=== PATIENT | female | born 1990 ===

== ENCOUNTER 2017-02-09 00:15 | Observation (INO) | payer BC, OTHER ==
[2017-02-09 00:23] VITALS: BMI 27.3
[2017-02-09] MEDS ORDERED: Sodium Chloride 0.9% 1,000 ML IV STA (00:28)
[2017-02-09] MEDS ORDERED: DiphenhydrAMINE 50 mg/ml Inj IVP STA (00:31)
--- NOTE | 2017-02-09 00:31 | ED PDOC ---
"Arrival/HPI - General Chief Complaint: GI Problem Time Seen by Provider: 02/09/17 00:21 Historian: Patient - History of Present Illness Narrative History of Present Illness (Text): 02/09/17 00:28 26 y/o female, pmh including chronic gastritis/gastric ulcer, nkda, c/o abdominal pain with nausea and vomiting x 3 days. Pt. stated that she has epigastric burning sensation for the past 3 days, out the pepcid for the past 5- 6 days, more sever tonight after spicy food meal, no chest pain or shortness of breath, no blood vomiting, no night sweat, no dark color stool, no chest pain or shortness of breath, no night sweat, no other medical or psychological complaints. Past Medical History - Provider Review Nursing Documentation Reviewed: Yes - Psychiatric Hx Substance Use: No Family/Social History - Physician Review Nursing Documentation Reviewed: Yes Family/Social History: Unknown Family HX Smoking Status: no Hx Alcohol Use: No Hx Substance Use: No Allergies/Home Meds Allergies/Adverse Reactions: Allergies No Known Allergies Allergy (Verified 02/09/17 00:25) Review of Systems - Review of Systems Constitutional: absent: Fatigue, Fevers Eyes: absent: Vision Changes ENT: absent: Hearing Changes Respiratory: absent: SOB, Cough Cardiovascular: absent: Chest Pain Gastrointestinal: Abdominal Pain, Nausea, Vomiting. absent: Diarrhea Skin: absent: Rash, Pruritis, Skin Lesions Physical Exam Vital Signs Reviewed: Yes Vital Signs Temp Pulse Resp BP Pulse Ox 02/09/17 04:09 99 F 82 18 131/79 02/09/17 03:45 65 16 120/64 100 02/09/17 00:27 99.0 F 83 18 125/67 99 Temperature: Afebrile Blood Pressure: Normal Pulse: Regular Respiratory Rate: Normal Appearance: Positive for: Well-Appearing, Non-Toxic Pain Distress: Moderate Mental Status: Positive for: Alert and Oriented X 3 - Systems Exam Head: Present: Atraumatic, Normocephalic Pupils: Present: PERRL Extroacular Muscles: Present: EOMI Conjunctiva: Present: Normal Mouth: Present: Moist Mucous Membranes Neck: Present: Normal Range of Motion Respiratory/Chest: Present: Clear to Auscultation, Good Air Exchange. No: Respiratory Distress, Accessory Muscle Use Cardiovascular: Present: Regular Rate and Rhythm, Normal S1, S2. No: Murmurs Abdomen: Present: Tenderness (+epigastric tenderness, negative kinney signs. ), Normal Bowel Sounds. No: Distention, Peritoneal Signs, Rebound, Guarding Back: Present: Normal Inspection. No: CVA Tenderness Upper Extremity: Present: Normal Inspection. No: Cyanosis, Edema Lower Extremity: Present: Normal Inspection. No: Edema Neurological: Present: GCS=15, CN II-XII Intact, Speech Normal Skin: Present: Warm, Dry, Normal Color. No: Rashes Psychiatric: Present: Alert, Oriented x 3, Normal Insight, Normal Concentration Medical Decision Making ED Course and Treatment: 02/09/17 00:34 -labs/ua/lipase/alcohol -IVF/benadryl/pepcid/reglan -Observe and reassess 02/09/17 00:53 -Labs are non-significant except mild elevation of the wbc 11.6, Potassium 3.1 -Potassium chloride 20mg po ordered. -Pt. has limited relief with the IV pepcid/reglan/benadryl. Morphine 4mg IV ordered -CT abdomen and pelvis added. Gallbladder sonogram added. 02/09/17 02:45 -Labs are non-significant except +UTI, K+ 3.1, Wbc 11.6. Potassium chloride 20meq po and IV rocephine ordered. -Sonogram show: no acute cholecystitis -CT Abdomen and pelvis results reviewed. -I checked the [facility] report, there is no visible record noted for the past 12 months with the names/dates of provided by the patient. I spoke to the registration which the registration Queta stated that the patient didn't have any ID cards or proof of the identity with her. -Carafate po suspension ordered. -There is no clear evidence of the source of the pain, will observe the patient overnight for the level of the pain 02/09/17 02:50 -I spoke to the biomedical analytical scientist Dr. Paredes and Dr. Lockett about the case/labs/ radiology studies, agreed to keep the patient for over night observation. - Lab Interpretations Microbiology Results: Microbiology Results 02/09/17 00:57 Urine,Clean Catch Urine Culture - Preliminary Gram Negative Gonzales Lab Results: 02/09/17 00:20 02/09/17 00:20 Lab Results 02/09/17 01:00: Urine Color Yellow, Urine Appearance Cloudy, Urine pH 6.0, Ur Specific [place] >= 1.030, Urine Protein 30 H, Urine Glucose (UA) Negative, Urine Ketones >=80, Urine Blood Small H, Urine Nitrate Negative, Urine Bilirubin Negative, Urine Urobilinogen 0.2, Ur Leukocyte Esterase Large H, Urine RBC 2 - 5, Urine WBC 25 - 30, Ur Epithelial Cells 3 - 4, Urine Bacteria Mod 02/09/17 00:20: WBC 11.6 H, RBC 4.25, Hgb 13.0, Hct 37.4, MCV 88.0, MCH 30.6, MCHC 34.8, RDW 13.5, Plt Count 194, MPV 9.5, Gran % 76.0 H, Lymph % (Auto) 17.2 L, Saunders % (Auto) 6.6 H, Eos % (Auto) 0.0 L, Baso % (Auto) 0.2, Gran # 8.82 H, Lymph # 2.0, Saunders # 0.8 H, Eos # 0.0, Baso # 0.02 02/09/17 00:20: Alcohol, Quantitative < 10 02/09/17 00:20: Sodium 143, Potassium 3.1 L, Chloride 101, Carbon Dioxide 26, Anion Gap 19, BUN 7, Creatinine 0.7, Est GFR ( Amer) > 60, Est GFR (Non- Af Amer) > 60, Random Glucose 95, Calcium 9.4, Total Bilirubin 0.7, AST 50 H, ALT 39, Alkaline Phosphatase 71, Total Protein 8.4 H, Albumin 5.0 H, Globulin 3.4, Albumin/Globulin Ratio 1.5, Lipase 46 I have reviewed the lab results: Yes Interpretation: Abnormal lab values (+UTI, K+ 3.1, Wbc 11.6) - RAD Interpretation Radiology Orders: 02/09/17 00:50 ABD & PELVIS IV CONTRAST ONLY [CT] Stat 02/09/17 00:52 GALL BLADDER [US] Stat FINDINGS: Liver: Normal echogenicity. No mass. No intrahepatic bile duct dilatation. Gallbladder: No gallstones. Sludge. No wall thickening. No pericholecystic fluid. Common bile duct: No dilatation. No stones. Pancreas: Unremarkable as visualized. Right kidney: Normal echogenicity. No hydronephrosis. IMPRESSION: 1. Gallbladder sludge. Thank you for allowing us to participate in the care of your patient. Dictated and Authenticated by: Marlo Andrade MD 02/09/2017 2:33 AM Eastern Time ( & Sara) FINDINGS: Lower thorax: No acute findings. ABDOMEN: Liver: Minimal periportal edema. Gallbladder and bile ducts: No calcified stones. No ductal dilation. Pancreas: No ductal dilation. No mass. Spleen: No splenomegaly. Adrenals: No mass. Kidneys and ureters: No mass. No hydronephrosis. Stomach and bowel: Segmental areas of mild mural thickening vs underdistention of large bowel. No associated inflammatory stranding. No obstruction. Appendix: Normal caliber. No inflammation. PELVIS: GRABIEL BOB | Final Radiology Report CONFIDENTIALITY STATEMENT This report is intended only for use by the referring physician, and only in accordance with law. If you received this in error, call [phone]. Page 2 of 2 Bladder: Unremarkable. Reproductive: Small ovarian follicles. ABDOMEN and PELVIS: Intraperitoneal space: Small free fluid within pelvis. No free air. Bones/joints: No acute fracture. Soft tissues: Tiny umbilical hernia containing fat. Vasculature: Few rounded calcifications within pelvis, likely phleboliths. No aneurysm. Lymph nodes: No pathologically enlarged lymph nodes. IMPRESSION: 1. Periportal edema, nonspecific. 2. Small pelvic ascites, nonspecific. 3. Mild colitis vs underdistention. Favor underdistention. Clinical correlation is needed. 4. Incidental/non-acute findings are described above. Thank you for allowing us to participate in the care of your patient. Dictated and Authenticated by: Marlo Andrade MD 02/09/2017 2:32 AM Eastern Time ( & Sara) Franchise Sales Representative: Radiologist - Medication Orders Current Medication Orders: Acetaminophen (Tylenol 325mg Tab) 650 mg PO Q6 PRN PRN Reason: Pain, Mild (1-3) Last Admin: 02/10/17 09:48 Dose: 650 mg Re-Assess: MAR Pain/Vitals Document 02/10/17 10:48 ID (Rec: 02/10/17 12:00 ID [id number]) Pain Reassessment Is This A Pain ReAssessment? No Sleep Is patient sleeping during reassessment? No Presence of Pain Presence of Pain Yes Pain Scale Used Pain Scale Used Numeric Location Pain Location Body Site Abdomen Description Intermittent Chronic Scale Used Numeric Pain Behavior Rubbing Site Aggravating Factors Exercise/Activity Alleviating Factors Medication Acetaminophen (Tylenol 325mg Tab) 650 mg PO Q6 PRN PRN Reason: Fever >100.4 F Al Hydrox/Mg Hydrox/Simethicone (Maalox Plus 30 Ml) 30 ml PO Q6 PRN PRN Reason: Indigestion / Heartburn Last Admin: 02/10/17 09:47 Dose: 30 ml Docusate Sodium (Colace) 100 mg PO DAILY [facility] Last Admin: 02/10/17 09:55 Dose: 100 mg Ceftriaxone Sodium (Rocephin 1 Gram Ivpb) 1 gm in 100 mls @ 100 mls/hr IVPB DAILY [facility] PRN Reason: Protocol Last Admin: 02/10/17 09:50 Dose: 100 mls/hr Potassium Chloride 40 meq/ (Sodium Chloride) 1,020 mls @ 100 mls/hr IV .[id number] [facility] Last Admin: 02/10/17 12:08 Dose: 100 mls/hr Lorazepam (Ativan) 0.5 mg PO TID PRN; Protocol PRN Reason: Nausea/Vomiting Ondansetron HCl (Zofran Inj) 4 mg IVP Q4H PRN PRN Reason: Nausea/Vomiting Last Admin: 02/10/17 08:42 Dose: 4 mg Pantoprazole Sodium (Protonix Inj) 40 mg IVP BID [facility] Last Admin: 02/10/17 09:48 Dose: 40 mg Polyethylene Glycol (Miralax) 17 gm PO DAILY [facility] Last Admin: 02/10/17 09:51 Dose: 17 gm Sucralfate (Carafate Oral Susp) 1 gm PO 0600,1600 [facility] Last Admin: 02/10/17 11:58 Dose: 1 gm Discontinued Medications Al Hydrox/Mg Hydrox/Simethicone (Maalox Plus 30 Ml) 15 ml PO Q8 [facility] Last Admin: 02/09/17 21:22 Dose: 15 ml Diphenhydramine HCl (Benadryl) 25 mg IVP STAT STA Stop: 02/09/17 00:32 Last Admin: 02/09/17 00:42 Dose: 25 mg Famotidine (Pepcid) 20 mg IVP STAT STA Stop: 02/09/17 00:29 Last Admin: 02/09/17 00:40 Dose: 20 mg Heparin Sodium (Porcine) (Heparin) 5,000 units SC Q12 [facility] PRN Reason: Protocol Last Admin: 02/09/17 21:38 Dose: 5,000 units Hydromorphone HCl (Dilaudid) 0.5 mg IVP STAT STA Stop: 02/09/17 15:30 Last Admin: 02/09/17 15:48 Dose: 0.5 mg Re-Assess: [facility] Pain Assessment Document 02/09/17 16:48 GM (Rec: 02/09/17 18:48 GM [id number]) Pain Reassessment Is this a pain reassessment? Yes Sleep Is patient sleeping during reassessment? Yes Hydromorphone HCl (Dilaudid) 0.2 mg IVP STAT STA Stop: 02/10/17 00:35 Last Admin: 02/10/17 01:09 Dose: 0.2 mg Re-Assess: [facility] Pain Assessment Document 02/10/17 02:09 KTB (Rec: 02/10/17 02:31 KTB [id number]) Pain Reassessment Is this a pain reassessment? Yes Sleep Is patient sleeping during reassessment? Yes Hydromorphone HCl (Dilaudid) 0.5 mg IVP STAT STA Stop: 02/10/17 04:13 Last Admin: 02/10/17 04:28 Dose: 0.5 mg Re-Assess: [facility] Pain Assessment Document 02/10/17 05:28 KTB (Rec: 02/10/17 05:50 KTB [id number]) Pain Reassessment Is this a pain reassessment? Yes Sleep Is patient sleeping during reassessment? Yes Sodium Chloride (Sodium Chloride 0.9%) 1,000 mls @ 999 mls/hr IV .Q1H1M STA Stop: 02/09/17 01:28 Last Admin: 02/09/17 00:40 Dose: 999 mls/hr Ceftriaxone Sodium (Rocephin 1 Gram Ivpb) 1 gm in 100 mls @ 200 mls/hr IVPB STAT STA PRN Reason: Protocol Stop: 02/09/17 01:58 Last Admin: 02/09/17 02:42 Dose: 200 mls/hr Potassium Chloride (Potassium Chloride 10 Meq/100 Ml) 10 meq in 100 mls @ 100 mls/hr IVPB Q2H [facility]ISA Stop: 02/09/17 08:59 Last Admin: 02/09/17 15:51 Dose: 100 mls/hr Sodium Chloride (Sodium Chloride 0.9%) 1,000 mls @ 100 mls/hr IV .Q10H [facility] Last Admin: 02/09/17 05:27 Dose: 100 mls/hr Metronidazole (Flagyl) 500 mg in 100 mls @ 100 mls/hr IVPB Q8 [facility] PRN Reason: Protocol Last Admin: 02/10/17 05:53 Dose: 100 mls/hr Iohexol (Omnipaque 350 100 Ml) Confirm Administered Dose 350 mg .ROUTE .STK-MED ONE Stop: 02/09/17 01:11 Lorazepam (Ativan) 0.5 mg PO TID [facility] PRN Reason: Protocol Last Admin: 02/10/17 09:44 Dose: 0.5 mg Re-Assess: Reassess Psych Meds Document 02/10/17 10:44 ID (Rec: 02/10/17 11:58 ID [id number]) Reassess Psych Med Effective Metoclopramide HCl (Reglan) 10 mg IVP STAT STA Stop: 02/09/17 00:29 Last Admin: 02/09/17 00:42 Dose: 10 mg Morphine Sulfate (Morphine) 4 mg IVP STAT STA Stop: 02/09/17 00:51 Last Admin: 02/09/17 01:01 Dose: 4 mg Morphine Sulfate (Morphine) 2 mg IVP Q4H PRN PRN Reason: Pain, severe (8-10) Last Admin: 02/09/17 21:23 Dose: 2 mg Re-Assess: MAR Pain Assessment Document 02/09/17 22:23 KTB (Rec: 02/10/17 05:49 KTB [id number]) Pain Reassessment Is this a pain reassessment? Yes Presence of Pain Presence of Pain Yes Pain Scale Used Pain Scale Used Numeric Description Intensity of Pain at present 6 Ondansetron HCl (Zofran Inj) 4 mg IVP STAT STA Stop: 02/09/17 03:03 Last Admin: 02/09/17 03:16 Dose: 4 mg Pantoprazole Sodium (Protonix Inj) 40 mg IVP DAILY [facility] Last Admin: 02/09/17 09:21 Dose: 40 mg Potassium Chloride (K-Dur 20 Meq Er Tab) 20 meq PO STAT STA Stop: 02/09/17 01:30 Last Admin: 02/09/17 02:45 Dose: Not Given Non-Admin Reason: Patient Refused Potassium Chloride (K-Dur 20 Meq Er Tab) 40 meq PO ONCE ONE Stop: 02/10/17 07:56 Last Admin: 02/10/17 10:00 Dose: 40 meq Sucralfate (Carafate Oral Susp) 1 gm PO STAT STA Stop: 02/09/17 02:45 Last Admin: 02/09/17 03:16 Dose: 1 gm - PA / DRAW OPERATOR / Resident Statement /DO has reviewed & agrees with the documentation as recorded. Disposition/Present on Arrival - Present on Arrival Any Indicators Present on Arrival: No History of DVT/PE: No History of Uncontrolled Diabetes: No Urinary Catheter: No History of Decub. Ulcer: No History Surgical Site Infection Following: None - Disposition Have Diagnosis and Disposition been Completed?: Yes Diagnosis: UTI (urinary tract infection), Gastritis, Nausea & vomiting, Hypokalemia, Intractable abdominal pain Disposition: HOSPITALIZED Disposition Time: 01:32 Patient Plan: Observation Patient Problems: Current Active Problems Problem Status Onset Gastritis Acute Hypokalemia Acute Intractable abdominal pain Acute Nausea & vomiting Acute UTI (urinary tract infection) Acute Condition: STABLE"
[2017-02-09 00:48] LABS: BASO # 0.02 K/mm3 (0.0-2.0); BASO % 0.2 % (0.0-3.0); GRAN # 8.82 (1.4-6.5); HEMATOCRIT 37.4 % (36.0-48.0); LYMPH % 17.2 % (22.0-35.0); MEAN CORPUSCULAR HEMOGLOBIN 30.6 pg (25.0-35.0); MEAN CORPUSCULAR HGB CONC 34.8 g/dl (31.0-37.0); MEAN PLATELET VOLUME 9.5 fl (7.0-11.0); MONO # 0.8 (0.1-0.6); MONO % 6.6 % (1.0-6.0); RED CELL DISTRIBUTION WIDTH 13.5 % (11.5-14.5); WHITE BLOOD COUNT 11.6 10^3/ul (4.5-11.0)
[2017-02-09 00:50] LABS: ALB/GLOB RATIO 1.5 (1.1-1.8); ALKALINE PHOSPHATASE 71 U/L (38-126); ALT/SGPT 39 U/L (7-56); AST/SGOT 50 U/L (14-36); BILIRUBIN,TOTAL 0.7 mg/dL (0.2-1.3); BLOOD UREA NITROGEN 7 mg/dL (7-21); CALCIUM 9.4 mg/dL (8.4-10.5); CARBON DIOXIDE 26 mmol/L (21-33); CHLORIDE 101 mmol/L (98-107); GFR AFRICAN-AMERICAN > 60; GLUCOSE,RANDOM 95 mg/dL (70-110); LIPASE 46 U/L (23-300); POTASSIUM 3.1 mmol/L (3.6-5.0); SODIUM 143 mmol/L (132-148); TOTAL PROTEIN 8.4 g/dL (5.8-8.3)
[2017-02-09] MEDS ORDERED: Morphine 4 mg/ml ISec IVP STA (00:50)
[2017-02-09] MEDS ORDERED: Iohexol 350 MG/100 ML VIAL ONE (01:10)
[2017-02-09 01:11] LABS: URINE BILIRUBIN NEGATIVE (NEGATIVE); URINE BLOOD SMALL (NEGATIVE); URINE GLUCOSE (UA) NEGATIVE (NEGATIVE); URINE KETONE >=80 mg/dL (NEGATIVE); URINE LEUKOCYTE ESTERASE LARGE Leu/uL (NEGATIVE); URINE PROTEIN 30 mg/dL (<30 mg/dL); URINE UROBILINOGEN 0.2 E.U./dL (<1 E.U./dL)
[2017-02-09 01:14] LABS: URINE APPEARANCE CLOUDY (CLEAR); URINE COLOR YELLOW (YELLOW)
[2017-02-09 01:17] LABS: URINE WBC 25 - 30 /hpf (0-6)
[2017-02-09 01:18] LABS: URINE BACTERIA MOD (NEG)
[2017-02-09] MEDS ORDERED: cefTRIAXone 1 gm 1 GM/100 ML BAG IVPB STA (01:29)
--- NOTE | 2017-02-09 02:32 | CT ---
EXAM: CT Abdomen and Pelvis With Intravenous Contrast CLINICAL HISTORY: 26 years old, female; Pain; Abdominal pain; Additional info: Upper abdominal pain and vomiting x 5 days TECHNIQUE: Axial computed tomography images of the abdomen and pelvis with intravenous contrast. All CT scans at this facility use one or more dose reduction techniques, viz.: automated exposure control; ma/kV adjustment per patient size (including targeted exams where dose is matched to indication; i.e. head); or iterative reconstruction technique. Coronal and sagittal reformatted images were created and reviewed. CONTRAST: 100 mL of OMNIPAQUE administered intravenously. COMPARISON: No relevant prior studies available. FINDINGS: Lower thorax: No acute findings. ABDOMEN: Liver: Minimal periportal edema. Gallbladder and bile ducts: No calcified stones. No ductal dilation. Pancreas: No ductal dilation. No mass. Spleen: No splenomegaly. Adrenals: No mass. Kidneys and ureters: No mass. No hydronephrosis. Stomach and bowel: Segmental areas of mild mural thickening vs underdistention of large bowel. No associated inflammatory stranding. No obstruction. Appendix: Normal caliber. No inflammation. PELVIS: Bladder: Unremarkable. Reproductive: Small ovarian follicles. ABDOMEN and PELVIS: Intraperitoneal space: Small free fluid within pelvis. No free air. Bones/joints: No acute fracture. Soft tissues: Tiny umbilical hernia containing fat. Vasculature: Few rounded calcifications within pelvis, likely phleboliths. No aneurysm. Lymph nodes: No pathologically enlarged lymph nodes. IMPRESSION: 1. Periportal edema, nonspecific. 2. Small pelvic ascites, nonspecific. 3. Mild colitis vs underdistention. Favor underdistention. Clinical correlation is needed. 4. Incidental/non-acute findings are described above.
--- NOTE | 2017-02-09 02:34 | US ---
EXAM: US Abdomen Limited, Right Upper Quadrant CLINICAL HISTORY: 26 years old, female; Pain; Abdominal pain; Epigastric; Additional info: Epigastric abdomina pain TECHNIQUE: Real-time ultrasound of the right upper quadrant with image documentation. COMPARISON: No relevant prior studies available. FINDINGS: Liver: Normal echogenicity. No mass. No intrahepatic bile duct dilatation. Gallbladder: No gallstones. Sludge. No wall thickening. No pericholecystic fluid. Common bile duct: No dilatation. No stones. Pancreas: Unremarkable as visualized. Right kidney: Normal echogenicity. No hydronephrosis. IMPRESSION: 1. Gallbladder sludge.
[2017-02-09] MEDS: Potassium Chloride 20 mEq ER Tab PO STA ×2 (02:42→02:45)
[2017-02-09] MEDS ORDERED: Sucralfate 1 gm/10 ml Oral Susp UD PO STA (02:44)
[2017-02-09] MEDS ORDERED: Sodium Chloride 0.9% 1,000 ML IV SCH (04:00)
--- NOTE | 2017-02-09 04:22 | CP.PCM.HP ---
<Jorge Land - Last Filed: 02/09/17 04:13> History of Present Illness - History of Present Illness History of Present Illness: CC: Intractable N/V/Abdominal pain HPI: 26 F with a PMHx of chronic gastritis and gastric ulcer presenting to the [facility] ED with complaints of intractable abdominal pain, nausea and vomitting. Pt states that the symptoms began this past after eating spicy home cooked meal on saturday. Pt states that spicy food is a trigger for her gastritis symptoms to flare up. Pt has had similar symptoms in the past, and most recently hospitalized at [facility] a couple of months ago. Pt was to follow up GI as an outpatient, however did not do so. Pt states that her abdominal pain is rated at a 8/10 in intensity, diffuse and burning in quality. Pt has had nbnv emesis over the past three day, and has had 2-3 episodes today. Pt denied fever, chills, sob, chest pains, hematochezia, melena, or dysuria. Pt noted that she has not had a bowel movement in the past 3 days. PMHx; as above PSHx: Denied FamilyHx: Denied SHx: Denied tobacco/etoh/illicits Allergies: NKDA Meds: otc pepcid No PMD Present on Admission - Present on Admission Any Indicators Present on Admission: No Review of Systems - Review of Systems Review of Systems: as per HPI otherwise negative Past Patient History - Past Social History Smoking Status: no - PSYCHIATRIC Hx Substance Use: No Meds Allergies/Adverse Reactions: Allergies Allergy/AdvReac Type Severity Reaction Status Date / Time No Known Allergies Allergy Verified 02/09/17 00:25 Physical Exam - Constitutional Appears: In Acute Distress - Head Exam Head Exam: ATRAUMATIC, NORMAL INSPECTION, NORMOCEPHALIC - Eye Exam Eye Exam: EOMI, Normal appearance, PERRL Pupil Exam: NORMAL ACCOMODATION, PERRL - ENT Exam ENT Exam: Mucous Membranes Moist, Normal Exam - Neck Exam Neck exam: Positive for: Normal Inspection - Respiratory Exam Respiratory Exam: Clear to Auscultation Bilateral, NORMAL BREATHING PATTERN - Cardiovascular Exam Cardiovascular Exam: REGULAR RHYTHM, +S1, +S2 - GI/Abdominal Exam GI & Abdominal Exam: Normal Bowel Sounds, Soft, Tenderness. absent: Rebound Additional comments: diffuse - Extremities Exam Extremities exam: Positive for: normal inspection - Neurological Exam Neurological exam: Alert, CN II-XII Intact, Normal Gait, Oriented x3, Reflexes Normal - Psychiatric Exam Psychiatric exam: Normal Affect, Normal Mood - Skin Skin Exam: Dry, Intact, Normal Color, Warm Results - Vital Signs Recent Vital Signs: Last Vital Signs Temp 99.0 F 02/09/17 00:27 Pulse 65 02/09/17 03:45 Resp 16 02/09/17 03:45 BP 120/64 02/09/17 03:45 Pulse Ox 100 02/09/17 03:45 - Labs Result Diagrams: 02/09/17 00:20 02/09/17 00:20 Labs: Laboratory Results - last 24 hr 02/09/17 02/09/17 02/09/17 00:20 00:20 00:20 WBC 11.6 H RBC 4.25 Hgb 13.0 Hct 37.4 MCV 88.0 MCH 30.6 MCHC 34.8 RDW 13.5 Plt Count 194 MPV 9.5 Gran % 76.0 H Lymph % (Auto) 17.2 L Parke % (Auto) 6.6 H Eos % (Auto) 0.0 L Baso % (Auto) 0.2 Gran # 8.82 H Lymph # 2.0 Parke # 0.8 H Eos # 0.0 Baso # 0.02 Sodium 143 Potassium 3.1 L Chloride 101 Carbon Dioxide 26 Anion Gap 19 BUN 7 Creatinine 0.7 Est GFR ( Amer) > 60 Est GFR (Non-Af Amer) > 60 Random Glucose 95 Calcium 9.4 Total Bilirubin 0.7 AST 50 H ALT 39 Alkaline Phosphatase 71 Total Protein 8.4 H Albumin 5.0 H Globulin 3.4 Albumin/Globulin Ratio 1.5 Lipase 46 Urine Color Urine Appearance Urine pH Ur Specific [place] Urine Protein Urine Glucose (UA) Urine Ketones Urine Blood Urine Nitrate Urine Bilirubin Urine Urobilinogen Ur Leukocyte Esterase Urine RBC Urine WBC Ur Epithelial Cells Urine Bacteria Alcohol, Quantitative < 10 02/09/17 01:00 WBC RBC Hgb Hct MCV MCH MCHC RDW Plt Count MPV Gran % Lymph % (Auto) Parke % (Auto) Eos % (Auto) Baso % (Auto) Gran # Lymph # Parke # Eos # Baso # Sodium Potassium Chloride Carbon Dioxide Anion Gap BUN Creatinine Est GFR ( Amer) Est GFR (Non-Af Amer) Random Glucose Calcium Total Bilirubin AST ALT Alkaline Phosphatase Total Protein Albumin Globulin Albumin/Globulin Ratio Lipase Urine Color Yellow Urine Appearance Cloudy Urine pH 6.0 Ur Specific [place] >= 1.030 Urine Protein 30 H Urine Glucose (UA) Negative Urine Ketones >=80 Urine Blood Small H Urine Nitrate Negative Urine Bilirubin Negative Urine Urobilinogen 0.2 Ur Leukocyte Esterase Large H Urine RBC 2 - 5 Urine WBC 25 - 30 Ur Epithelial Cells 3 - 4 Urine Bacteria Mod Alcohol, Quantitative Assessment & Plan - Assessment and Plan (Free Text) Assessment: 26 F with PMHx of chronic gastritis and gastric ulcer admitted for observation for intractable abdominal pain/ nausea and vomitting Intractable N/V/Abdominal pain Hx of Chronic gastritis with gastric ulcer NPO, protonix, judicious analgesia, IVF NS@100, zofran Rocephin, flagyl, sucralafate GI Consulted, Dr. Berry Leukocytosis 2/2 above vs UTI Rocephin, flagyl IVF Continue to monitor Hypokalemia IV KCl continue to monitor Constipation IV reglan in ED defer to GI GI DVT ppx reviewed <Luz Lockett - Last Filed: 02/09/17 05:47> Results - Vital Signs Recent Vital Signs: Last Vital Signs Temp 99 F 02/09/17 04:09 Pulse 82 02/09/17 04:09 Resp 18 02/09/17 04:09 BP 131/79 02/09/17 04:09 Pulse Ox 100 02/09/17 03:45 - Labs Result Diagrams: 02/09/17 00:20 02/09/17 00:20 Attending/Attestation - Attestation I have personally seen and examined this patient.: Yes I have fully participated in the care of the patient.: Yes I have reviewed all pertinent clinical information: Yes Notes (Text): 02/09/17 05:33 Patient was seen when she was in room # 378. Agree with history, physical examination, assessment and plan. This 26 year old woman comes in with complaint of epigastric pain, sharp, pins and needle, no radiation of pain, nausea, vomiting more than 10 times, little vomitus each time , sometimes with blood steak , has no known allergies, no significant past medical history, no surgical history, family history of heart disease, maternal aunt with pancreatic cancer, quit smoking one year ago, smoked 1-2 cig/day, has PMD at [employer] in [place], lives in a house in [facility],with mother and brother, had LMP last Saturday, has 3 children, no history of abortions or miscarriages, review of system shows hand arthritis, hands stiffen up sometimes, GERD, stomach ulcer, seizure disorder, last seizure was one year ago, was on dilantin? 4-5 months ago.
[2017-02-09] MEDS: Morphine 2 mg/ml ISec IVP PRN ×4 (04:49→21:23)
[2017-02-09 07:33] LABS: ALB/GLOB RATIO 1.5 (1.1-1.8); ALKALINE PHOSPHATASE 61 U/L (38-126); ALT/SGPT 39 U/L (7-56); AST/SGOT 46 U/L (14-36); BILIRUBIN,TOTAL 0.6 mg/dL (0.2-1.3); BLOOD UREA NITROGEN 4 mg/dL (7-21); CALCIUM 8.6 mg/dL (8.4-10.5); CARBON DIOXIDE 26 mmol/L (21-33); CHLORIDE 102 mmol/L (98-107); GFR AFRICAN-AMERICAN > 60; GLUCOSE,RANDOM 83 mg/dL (70-110); PHOSPHOROUS 2.7 mg/dL (2.5-4.5); POTASSIUM 3.3 mmol/L (3.6-5.0); SODIUM 139 mmol/L (132-148); TOTAL PROTEIN 7.5 g/dL (5.8-8.3)
[2017-02-09 07:35] LABS: BASO # 0.02 K/mm3 (0.0-2.0); BASO % 0.2 % (0.0-3.0); GRAN # 6.89 (1.4-6.5); GRAN % 65.9 % (50.0-68.0); HEMATOCRIT 35.6 % (36.0-48.0); LYMPH # 2.8 (1.2-3.4); LYMPH % 26.3 % (22.0-35.0); MEAN CELL VOLUME 87.5 fl (80.0-105.0); MEAN CORPUSCULAR HEMOGLOBIN 30.2 pg (25.0-35.0); MEAN CORPUSCULAR HGB CONC 34.6 g/dl (31.0-37.0); MONO # 0.8 (0.1-0.6); MONO % 7.6 % (1.0-6.0); RED CELL DISTRIBUTION WIDTH 13.4 % (11.5-14.5); WHITE BLOOD COUNT 10.5 10^3/ul (4.5-11.0)
[2017-02-09] MEDS: Sucralfate 1 gm/10 ml Oral Susp UD PO SCH ×2 (07:51→15:43)
[2017-02-09] MEDS: metroNIDAZOLE IV 500 mg/100 ml 500 MG/100 ML BAG IVPB SCH ×3 (07:51→21:21)
[2017-02-09] MEDS: cefTRIAXone 1 gm 1 GM/100 ML BAG IVPB SCH (09:24)
[2017-02-09] MEDS ORDERED: HYDROmorphone 0.5 mg/0.5 ml ISec IVP STA (15:29)
--- NOTE | 2017-02-09 15:39 | CP.PCM.CON ---
History of Present Illness - History of Present Illness History of Present Illness: Surgery 26 F with PMH of gastric ulcer/gastritis who is a former smoker came with epigastric pain, N/V that started a few days ago. Pt reports that pain started when she ate spicy food. Admits to multiple episodes of vomittimg. Non bilious. Mild blood tinged. Denies F/D/CP/SOB/hematochezia/dysuria/hematemesis. Pt had similar pain in the past. Dx w gastric ulcer 2,3 years ago. Last EGD was done at [facility] 2,3 years ago. Stopped smoking and drinking EtOh since then. They made symptoms worse. Pt doesn't take PPI. US shows Gall Bladder sludge. Surery is consulted to evaluate for cholelithiasis Review of Systems - Review of Systems Review of Systems: see HPI Past Patient History - Past Social History Smoking Status: no - CARDIAC Hx Cardiac Disorders: No Hx Angina: No Hx Cardia Arrhythmia: No Hx Circulatory Problems: No Hx Congestive Heart Failure: No Hx Heart Murmur: No Hx Heart Transplant: No Hx Hypercholesterolemia: No Hx Hypertension: Yes Hx Internal Defibrillator: No Hx Mitral Valve Prolapse: No Hx Pacemaker: No Hx Peripheral Edema: No Hx Peripheral Vascular Disease: No - PULMONARY Hx Respiratory Disorders: No Hx Asthma: No Hx Bronchitis: No Hx Chronic Obstructive Pulmonary Disease (COPD): No Hx Emphysema: No Hx Pneumonia: No Hx Respiratory Aspiration: No Hx Respiratory Tract Infection: No Hx Sleep Apnea: Yes Hx Tuberculosis: No - NEUROLOGICAL Hx Neurological Disorder: No Hx Alzheimer's Disease: No HX Cerebrovascular Accident: No Hx Dementia: No Hx Dizziness: No Hx Meningitis: No Hx Migraine: Yes Hx Parkinson's Disease: No Hx Seizures: No Hx Transient Ischemic Attacks (TIA): No - HEENT Hx HEENT Problems: No Hx Blind: No Hx Cataracts: No Hx Deafness: No Hx Difficulty Chewing: No Hx Epistaxis: No Hx Glaucoma: No Hx Macular Degeneration: No - RENAL Hx Chronic Kidney Disease: No Hx Dialysis: No Hx Kidney Stones: No Hx Neurogenic Bladder: No Hx Pyelonephritis: No Hx Renal (Kidney) Cancer: No Hx Renal Failure: No - ENDOCRINE/METABOLIC Hx Endocrine Disorders: No Hx Adrenal Cancer: No Hx Diabetes Insipidus: No Hx Diabetes Mellitus Type 1: No Hx Diabetes Mellitus Type 2: No Hx Hyperthyroidism: No Hx Hypothyroidism: No Hx Systemic Lupus Erythematosus: No - HEMATOLOGICAL/ONCOLOGICAL Hx Blood Disorders: No Hx AIDS: No Hx Anemia: No Hx Cancer: No Hx Chemotherapy: No Hx Cirrhosis: No Hx Hemophilia: No Hx Hepatitis A: No Hx Hepatitis B: No Hx Hepatitis C: No Hx Human Immunodeficiency Virus (HIV): No Hx Metastesis: No Hx Shingles: No Hx Sickle Cell Disease: No Hx Unexplained Bleeding: No - INTEGUMENTARY Hx Dermatological Problems: No Hx Basil Cell: No Hx Eczema: No Hx Melanoma: No Hx Psoriasis: No Hx Squamous Cell: No - MUSCULOSKELETAL/RHEUMATOLOGICAL Hx Musculoskeletal Disorders: No Hx Arthritis: No Hx Back Pain: No Hx Degenerative Joint Disease: No Hx Falls: No Hx Fractures: No Hx Gout: No Hx Herniated Disk: No Hx Myasthenia Gravis: No Hx Osteoarthritis: No Hx Osteomyelitis: No Hx Osteoporosis: No Hx Rhabdomyolysis: No Hx Spinal Stenosis: No Hx Unsteady Gait: No - GASTROINTESTINAL Hx Gastrointestinal Disorders: Yes Hx Colostomy: No Hx Crohn's Disease: No Hx Diverticulitis: No Hx Gall Bladder Disease: No Hx Gastroesophageal Reflux: No Hx Liver Failure: No Hx Pancreatitis: No HX Swallowing Problems: No - GENITOURINARY/GYNECOLOGICAL Hx Genitourinary Disorders: No Hx Hematuria: No Hx Incontinence: No Hx Sexually Transmitted Disorders: No Hx Urinary Tract Infection: No - PSYCHIATRIC Hx Substance Use: No - SURGICAL HISTORY Hx Surgeries: No Hx Amputation: No Hx Appendectomy: No Hx Cardiac Catheterization: No Hx Cholecystectomy: No Hx Coronary Stent: No Hx Gastric Bypass Surgery: No Hx Hysterectomy: No Hx Joint Replacement: No Hx Kidney Transplant: No Hx Liver Transplant: No Hx Mastectomy: No Hx Musculoskeletal Surgery: No Hx Open Heart Surgery: No Hx Orthopedic Surgery: No Hx Splenectomy: No Hx Valve Replacement: No Meds Allergies/Adverse Reactions: Allergies Allergy/AdvReac Type Severity Reaction Status Date / Time No Known Allergies Allergy Verified 02/09/17 00:25 - Medications Medications: Current Medications Acetaminophen (Tylenol 325mg Tab) 650 mg PO Q6 PRN PRN Reason: Pain, Mild (1-3) Acetaminophen (Tylenol 325mg Tab) 650 mg PO Q6 PRN PRN Reason: Fever >100.4 F Al Hydrox/Mg Hydrox/Simethicone (Maalox Plus 30 Ml) 15 ml PO Q8 [facility] Docusate Sodium (Colace) 100 mg PO DAILY [facility] Heparin Sodium (Porcine) (Heparin) 5,000 units SC Q12 [facility] PRN Reason: Protocol Last Admin: 02/09/17 09:22 Dose: 5,000 units Hydromorphone HCl (Dilaudid) 0.5 mg IVP STAT STA Stop: 02/09/17 15:30 Ceftriaxone Sodium (Rocephin 1 Gram Ivpb) 1 gm in 100 mls @ 100 mls/hr IVPB DAILY [facility] PRN Reason: Protocol Last Admin: 02/09/17 09:24 Dose: 100 mls/hr Sodium Chloride (Sodium Chloride 0.9%) 1,000 mls @ 100 mls/hr IV .Q10H [facility] Last Admin: 02/09/17 05:27 Dose: 100 mls/hr Metronidazole (Flagyl) 500 mg in 100 mls @ 100 mls/hr IVPB Q8 [facility] PRN Reason: Protocol Last Admin: 02/09/17 14:06 Dose: 100 mls/hr Morphine Sulfate (Morphine) 2 mg IVP Q4H PRN PRN Reason: Pain, severe (8-10) Last Admin: 02/09/17 14:05 Dose: 2 mg Ondansetron HCl (Zofran Inj) 4 mg IVP Q4H PRN PRN Reason: Nausea/Vomiting Pantoprazole Sodium (Protonix Inj) 40 mg IVP DAILY [facility] Last Admin: 02/09/17 09:21 Dose: 40 mg Sucralfate (Carafate Oral Susp) 1 gm PO 0600,1600 [facility] Last Admin: 02/09/17 07:51 Dose: Not Given Physical Exam - Constitutional Appears: No Acute Distress - Head Exam Head Exam: ATRAUMATIC, NORMAL INSPECTION, NORMOCEPHALIC - Eye Exam Eye Exam: EOMI, Normal appearance, PERRL Pupil Exam: NORMAL ACCOMODATION, PERRL - ENT Exam ENT Exam: Mucous Membranes Moist, Normal Exam - Neck Exam Neck exam: Positive for: Normal Inspection - Respiratory Exam Respiratory Exam: Clear to Auscultation Bilateral, NORMAL BREATHING PATTERN - Cardiovascular Exam Cardiovascular Exam: REGULAR RHYTHM - GI/Abdominal Exam GI & Abdominal Exam: Normal Bowel Sounds, Soft. absent: Tenderness - Rectal Exam Rectal Exam: NORMAL INSPECTION - Extremities Exam Extremities exam: Positive for: normal inspection - Back Exam Back exam: NORMAL INSPECTION - Neurological Exam Neurological exam: Alert, CN II-XII Intact, Normal Gait, Oriented x3, Reflexes Normal - Psychiatric Exam Psychiatric exam: Normal Affect, Normal Mood - Skin Skin Exam: Dry, Intact, Normal Color, Warm Results - Vital Signs Recent Vital Signs: Last Vital Signs Temp 99.5 F 02/09/17 06:00 Pulse 76 02/09/17 10:00 Resp 19 02/09/17 10:00 BP 111/69 02/09/17 10:00 Pulse Ox 100 02/09/17 10:00 - Labs Result Diagrams: 02/09/17 07:00 02/09/17 07:00 Labs: Laboratory Results - last 24 hr 02/09/17 02/09/17 02/09/17 07:00 07:00 07:00 WBC 10.5 RBC 4.07 Hgb 12.3 Hct 35.6 L MCV 87.5 MCH 30.2 MCHC 34.6 RDW 13.4 Plt Count 176 MPV 9.0 Gran % 65.9 Lymph % (Auto) 26.3 [place] % (Auto) 7.6 H Eos % (Auto) 0.0 L Baso % (Auto) 0.2 Gran # 6.89 H Lymph # 2.8 [place] # 0.8 H Eos # 0.0 Baso # 0.02 Sodium 139 Potassium 3.3 L Chloride 102 Carbon Dioxide 26 Anion Gap 14 BUN 4 L Creatinine 0.7 Est GFR ( Amer) > 60 Est GFR (Non-Af Amer) > 60 Random Glucose 83 Lactic Acid 0.6 L Calcium 8.6 Phosphorus 2.7 Magnesium 2.0 Total Bilirubin 0.6 AST 46 H ALT 39 Alkaline Phosphatase 61 Total Protein 7.5 Albumin 4.5 Globulin 3.1 Albumin/Globulin Ratio 1.5 Assessment & Plan - Assessment and Plan (Free Text) Assessment: Epigstric pain, most likely 2/2 gastritis US GB sludge Leukocytosis resolved UA + Leuk est VSS -elective out pt surgery if pt wishes -f/u at Dr. Aguilar's office upon discharge -PPI -GI on board -Pain/nausea control DW Dr. Aguilar
[2017-02-09] MEDS: Alum-Mag Hydrox-Simethicone Susp (30 mL) PO SCH ×2 (15:42→21:22)
[2017-02-10] MEDS ORDERED: HYDROmorphone 0.5 mg/0.5 ml ISec IVP STA ×2 (00:34→04:12)
[2017-02-10 00:36] VITALS: O2SAT 99
[2017-02-10] MEDS: metroNIDAZOLE IV 500 mg/100 ml 500 MG/100 ML BAG IVPB SCH (05:53)
[2017-02-10 06:20] LABS: BASO # 0.02 K/mm3 (0.0-2.0); BASO % 0.3 % (0.0-3.0); GRAN # 5.37 (1.4-6.5); GRAN % 68.3 % (50.0-68.0); HEMATOCRIT 35.9 % (36.0-48.0); LYMPH % 25.5 % (22.0-35.0); MEAN CELL VOLUME 87.1 fl (80.0-105.0); MEAN CORPUSCULAR HEMOGLOBIN 30.1 pg (25.0-35.0); MEAN CORPUSCULAR HGB CONC 34.5 g/dl (31.0-37.0); MONO # 0.5 (0.1-0.6); MONO % 5.9 % (1.0-6.0); RED CELL DISTRIBUTION WIDTH 13.4 % (11.5-14.5); WHITE BLOOD COUNT 7.9 10^3/ul (4.5-11.0)
[2017-02-10 06:35] LABS: ALB/GLOB RATIO 1.5 (1.1-1.8); ALKALINE PHOSPHATASE 58 U/L (38-126); ALT/SGPT 35 U/L (7-56); AST/SGOT 34 U/L (14-36); BILIRUBIN,TOTAL 0.6 mg/dL (0.2-1.3); BLOOD UREA NITROGEN 6 mg/dL (7-21); CALCIUM 8.5 mg/dL (8.4-10.5); CARBON DIOXIDE 19 mmol/L (21-33); CHLORIDE 103 mmol/L (98-107); GFR AFRICAN-AMERICAN > 60; GLUCOSE,RANDOM 60 mg/dL (70-110); MAGNESIUM 1.9 mg/dL (1.7-2.2); PHOSPHOROUS 3.3 mg/dL (2.5-4.5); SODIUM 140 mmol/L (132-148); TOTAL PROTEIN 7.2 g/dL (5.8-8.3)
--- NOTE | 2017-02-10 07:50 | CP.PCM.PN ---
Subjective - Date & Time of Evaluation Date of Evaluation: 02/10/17 Time of Evaluation: 07:46 - Subjective Subjective: General Surgery Progress note for Dr. Aguilar PT S&E at bedside. Patient had complained of pain per nursing overnight. Patient had emesis yesterday which was described as green with streaks of blood. Patient mentioned she has a history of gastric ulcers evaluated at [facility] via EGD and possible exploratory laparotomy (will follow up). Incision sites at lower abdomen. Patient denies feeling nauseaus. Admits to pain in epigastric and upper abdomen. Patient denies constipation, diarrhea. Objective - Vital Signs/Intake and Output Vital Signs (last 24 hours): Temp Pulse Resp BP Pulse Ox 98.1 F 85 20 125/59 L 99 02/09/17 23:00 02/09/17 23:00 02/09/17 23:00 02/09/17 23:00 02/09/17 23:00 Intake and Output: 02/10/17 02/10/17 06:59 18:59 Intake Total 1090 Output Total 0 Balance 1090 - Medications Medications: Current Medications Acetaminophen (Tylenol 325mg Tab) 650 mg PO Q6 PRN PRN Reason: Pain, Mild (1-3) Acetaminophen (Tylenol 325mg Tab) 650 mg PO Q6 PRN PRN Reason: Fever >100.4 F Al Hydrox/Mg Hydrox/Simethicone (Maalox Plus 30 Ml) 15 ml PO Q8 [facility] Last Admin: 02/09/17 21:22 Dose: 15 ml Docusate Sodium (Colace) 100 mg PO DAILY [facility] Last Admin: 02/09/17 15:49 Dose: 100 mg Heparin Sodium (Porcine) (Heparin) 5,000 units SC Q12 [facility] PRN Reason: Protocol Last Admin: 02/09/17 21:38 Dose: 5,000 units Ceftriaxone Sodium (Rocephin 1 Gram Ivpb) 1 gm in 100 mls @ 100 mls/hr IVPB DAILY [facility] PRN Reason: Protocol Last Admin: 02/09/17 09:24 Dose: 100 mls/hr Sodium Chloride (Sodium Chloride 0.9%) 1,000 mls @ 100 mls/hr IV .Q10H [facility] Last Admin: 02/09/17 05:27 Dose: 100 mls/hr Metronidazole (Flagyl) 500 mg in 100 mls @ 100 mls/hr IVPB Q8 [facility] PRN Reason: Protocol Last Admin: 02/10/17 05:53 Dose: 100 mls/hr Morphine Sulfate (Morphine) 2 mg IVP Q4H PRN PRN Reason: Pain, severe (8-10) Last Admin: 02/09/17 21:23 Dose: 2 mg Ondansetron HCl (Zofran Inj) 4 mg IVP Q4H PRN PRN Reason: Nausea/Vomiting Last Admin: 02/10/17 03:55 Dose: 4 mg Pantoprazole Sodium (Protonix Inj) 40 mg IVP DAILY [facility] Last Admin: 02/09/17 09:21 Dose: 40 mg Sucralfate (Carafate Oral Susp) 1 gm PO 0600,1600 [facility] Last Admin: 02/09/17 15:43 Dose: 1 gm - Labs Labs: 02/10/17 06:00 02/10/17 06:00 - Constitutional Appears: Non-toxic, No Acute Distress - Head Exam Head Exam: NORMAL INSPECTION - Eye Exam Eye Exam: EOMI, Normal appearance - ENT Exam ENT Exam: Mucous Membranes Moist - Neck Exam Neck Exam: Full ROM, Normal Inspection - Respiratory Exam Respiratory Exam: Clear to Ausculation Bilateral, NORMAL BREATHING PATTERN. absent: Accessory Muscle Use, Respiratory Distress - Cardiovascular Exam Cardiovascular Exam: REGULAR RHYTHM. absent: Bradycardia, Tachycardia - GI/Abdominal Exam GI & Abdominal Exam: Guarding, Soft, Tenderness, Normal Bowel Sounds, Rebound. absent: Diminished Bowel Sounds Additional comments: mild epigastric and LUQ - Extremities Exam Extremities Exam: Full ROM, Normal Inspection. absent: Pedal Edema - Neurological Exam Neurological Exam: Alert, Awake, Oriented x3 - Psychiatric Exam Psychiatric exam: Normal Affect, Normal Mood - Skin Skin Exam: Dry, Intact, Normal Color, Warm
[2017-02-10] MEDS ORDERED: Potassium Chloride 20 mEq ER Tab PO ONE (07:55)
[2017-02-10] MEDS ORDERED: Alum-Mag Hydrox-Simethicone Susp (30 mL) PO PRN (08:30)
[2017-02-10 09:42] VITALS: BP 97/54; PULSE 61; RESP 18; TEMP 98.2
[2017-02-10] MEDS: cefTRIAXone 1 gm 1 GM/100 ML BAG IVPB SCH (09:50)
[2017-02-10] MEDS ORDERED: POLYETHYLENE GLYCOL 3350 17 GM/Dose PACKET PO SCH (10:00)
--- NOTE | 2017-02-10 11:45 | CP.PCM.CON ---
<Katie More - Last Filed: 02/10/17 11:46> History of Present Illness - History of Present Illness History of Present Illness: GI Fellow PGY4 Consult Note This is 26yF with a pmhx of gastritis an gastric ulcer on EGD done at [facility] 2- 3yrs ago. Pt is presenting with complaints of severe epigastric and suprapubic abdominal pain and associated nausea and vomiting. Pt also reports no BM for 5 days. Pt recalls being treated with antibiotics after EGD but does not remember having a H.pylori bacterial infection. Does not take PPI therapy. Pt reports symptoms started soon after eating spicy food with associated heartburn. Pt denies melena, hematochezia, hemetemesis, fevers or chills. ROS: A 12pt ROS was obtained and was negative except as above. PmHx: As stated in HPI PsHx: Denied FHx: Denied SHx: Denied tobacco/etoh/illicit drugs Past Patient History - Past Social History Smoking Status: no - CARDIAC Hx Cardiac Disorders: No Hx Angina: No Hx Cardia Arrhythmia: No Hx Circulatory Problems: No Hx Congestive Heart Failure: No Hx Heart Murmur: No Hx Heart Transplant: No Hx Hypercholesterolemia: No Hx Hypertension: Yes Hx Internal Defibrillator: No Hx Mitral Valve Prolapse: No Hx Pacemaker: No Hx Peripheral Edema: No Hx Peripheral Vascular Disease: No - PULMONARY Hx Respiratory Disorders: No Hx Asthma: No Hx Bronchitis: No Hx Chronic Obstructive Pulmonary Disease (COPD): No Hx Emphysema: No Hx Pneumonia: No Hx Respiratory Aspiration: No Hx Respiratory Tract Infection: No Hx Sleep Apnea: Yes Hx Tuberculosis: No - NEUROLOGICAL Hx Neurological Disorder: No Hx Alzheimer's Disease: No HX Cerebrovascular Accident: No Hx Dementia: No Hx Dizziness: No Hx Meningitis: No Hx Migraine: Yes Hx Parkinson's Disease: No Hx Seizures: No Hx Transient Ischemic Attacks (TIA): No - HEENT Hx HEENT Problems: No Hx Blind: No Hx Cataracts: No Hx Deafness: No Hx Difficulty Chewing: No Hx Epistaxis: No Hx Glaucoma: No Hx Macular Degeneration: No - RENAL Hx Chronic Kidney Disease: No Hx Dialysis: No Hx Kidney Stones: No Hx Neurogenic Bladder: No Hx Pyelonephritis: No Hx Renal (Kidney) Cancer: No Hx Renal Failure: No - ENDOCRINE/METABOLIC Hx Endocrine Disorders: No Hx Adrenal Cancer: No Hx Diabetes Insipidus: No Hx Diabetes Mellitus Type 1: No Hx Diabetes Mellitus Type 2: No Hx Hyperthyroidism: No Hx Hypothyroidism: No Hx Systemic Lupus Erythematosus: No - HEMATOLOGICAL/ONCOLOGICAL Hx Blood Disorders: No Hx AIDS: No Hx Anemia: No Hx Cancer: No Hx Chemotherapy: No Hx Cirrhosis: No Hx Hemophilia: No Hx Hepatitis A: No Hx Hepatitis B: No Hx Hepatitis C: No Hx Human Immunodeficiency Virus (HIV): No Hx Metastesis: No Hx Shingles: No Hx Sickle Cell Disease: No Hx Unexplained Bleeding: No - INTEGUMENTARY Hx Dermatological Problems: No Hx Basil Cell: No Hx Eczema: No Hx Melanoma: No Hx Psoriasis: No Hx Squamous Cell: No - MUSCULOSKELETAL/RHEUMATOLOGICAL Hx Musculoskeletal Disorders: No Hx Arthritis: No Hx Back Pain: No Hx Degenerative Joint Disease: No Hx Falls: No Hx Fractures: No Hx Gout: No Hx Herniated Disk: No Hx Myasthenia Gravis: No Hx Osteoarthritis: No Hx Osteomyelitis: No Hx Osteoporosis: No Hx Rhabdomyolysis: No Hx Spinal Stenosis: No Hx Unsteady Gait: No - GASTROINTESTINAL Hx Gastrointestinal Disorders: Yes Hx Colostomy: No Hx Crohn's Disease: No Hx Diverticulitis: No Hx Gall Bladder Disease: No Hx Gastroesophageal Reflux: No Hx Liver Failure: No Hx Pancreatitis: No HX Swallowing Problems: No - GENITOURINARY/GYNECOLOGICAL Hx Genitourinary Disorders: No Hx Hematuria: No Hx Incontinence: No Hx Sexually Transmitted Disorders: No Hx Urinary Tract Infection: No - PSYCHIATRIC Hx Substance Use: No - SURGICAL HISTORY Hx Surgeries: No Hx Amputation: No Hx Appendectomy: No Hx Cardiac Catheterization: No Hx Cholecystectomy: No Hx Coronary Stent: No Hx Gastric Bypass Surgery: No Hx Hysterectomy: No Hx Joint Replacement: No Hx Kidney Transplant: No Hx Liver Transplant: No Hx Mastectomy: No Hx Musculoskeletal Surgery: No Hx Open Heart Surgery: No Hx Orthopedic Surgery: No Hx Splenectomy: No Hx Valve Replacement: No Meds Home Medications: Home Medication List Medication Instructions Recorded Confirmed Type Ondansetron HCl [Zofran] 4 mg PO Q12 #8 ml 02/10/17 Rx Pantoprazole Sodium [Protonix] 40 mg PO BID #60 ect 02/10/17 Rx Sucralfate [Carafate Oral Susp] 1 gm PO 0600,1600 #20 02/10/17 Rx Allergies/Adverse Reactions: Allergies Allergy/AdvReac Type Severity Reaction Status Date / Time No Known Allergies Allergy Verified 02/09/17 00:25 - Medications Medications: Current Medications Acetaminophen (Tylenol 325mg Tab) 650 mg PO Q6 PRN PRN Reason: Pain, Mild (1-3) Last Admin: 02/10/17 09:48 Dose: 650 mg Acetaminophen (Tylenol 325mg Tab) 650 mg PO Q6 PRN PRN Reason: Fever >100.4 F Al Hydrox/Mg Hydrox/Simethicone (Maalox Plus 30 Ml) 30 ml PO Q6 PRN PRN Reason: Indigestion / Heartburn Last Admin: 02/10/17 09:47 Dose: 30 ml Docusate Sodium (Colace) 100 mg PO DAILY [facility] Last Admin: 02/10/17 09:55 Dose: 100 mg Ceftriaxone Sodium (Rocephin 1 Gram Ivpb) 1 gm in 100 mls @ 100 mls/hr IVPB DAILY [facility] PRN Reason: Protocol Last Admin: 02/10/17 09:50 Dose: 100 mls/hr Potassium Chloride 40 meq/ (Sodium Chloride) 1,020 mls @ 100 mls/hr IV .[id number] [facility] Lorazepam (Ativan) 0.5 mg PO TID PRN; Protocol PRN Reason: Nausea/Vomiting Ondansetron HCl (Zofran Inj) 4 mg IVP Q4H PRN PRN Reason: Nausea/Vomiting Last Admin: 02/10/17 08:42 Dose: 4 mg Pantoprazole Sodium (Protonix Inj) 40 mg IVP BID [facility] Last Admin: 02/10/17 09:48 Dose: 40 mg Polyethylene Glycol (Miralax) 17 gm PO DAILY [facility] Last Admin: 02/10/17 09:51 Dose: 17 gm Sucralfate (Carafate Oral Susp) 1 gm PO 0600,1600 [facility] Last Admin: 02/09/17 15:43 Dose: 1 gm Physical Exam - Constitutional Appears: Non-toxic, Agitated - Head Exam Head Exam: ATRAUMATIC, NORMAL INSPECTION, NORMOCEPHALIC - Eye Exam Eye Exam: EOMI, Normal appearance, PERRL Pupil Exam: PERRL - ENT Exam ENT Exam: Mucous Membranes Moist, Normal Exam - Neck Exam Neck exam: Positive for: Normal Inspection - Respiratory Exam Respiratory Exam: Clear to Auscultation Bilateral, NORMAL BREATHING PATTERN - Cardiovascular Exam Cardiovascular Exam: RRR, +S1, +S2 - GI/Abdominal Exam GI & Abdominal Exam: Normal Bowel Sounds, Soft, Tenderness. absent: Distended, Firm, Guarding, Organomegaly, Rigid - Rectal Exam Rectal Exam: Deferred - Exam Additional comments: Gross Hematuria in toilet bowel - Extremities Exam Extremities exam: Positive for: full ROM, normal inspection - Back Exam Back exam: NORMAL INSPECTION - Neurological Exam Neurological exam: Alert, Altered, Oriented x3 - Psychiatric Exam Psychiatric exam: Anxious - Skin Skin Exam: Dry, Intact, Normal Color, Warm Results - Vital Signs Recent Vital Signs: Last Vital Signs Temp 98.2 F 02/10/17 06:00 Pulse 61 02/10/17 06:00 Resp 18 02/10/17 06:00 BP 97/54 L 02/10/17 06:00 Pulse Ox 99 02/10/17 06:00 - Labs Result Diagrams: 02/10/17 06:00 02/10/17 06:00 Labs: Laboratory Results - last 24 hr 02/09/17 02/10/17 02/10/17 07:00 06:00 06:00 WBC 7.9 D RBC 4.12 Hgb 12.4 Hct 35.9 L MCV 87.1 MCH 30.1 MCHC 34.5 RDW 13.4 Plt Count 175 MPV 9.0 Gran % 68.3 H Lymph % (Auto) 25.5 Worth % (Auto) 5.9 Eos % (Auto) 0.0 L Baso % (Auto) 0.3 Gran # 5.37 Lymph # 2.0 Worth # 0.5 Eos # 0.0 Baso # 0.02 Sodium 140 Potassium 3.0 L Chloride 103 Carbon Dioxide 19 L Anion Gap 21 H BUN 6 L Creatinine 0.7 Est GFR ( Amer) > 60 Est GFR (Non-Af Amer) > 60 Random Glucose 60 L Calcium 8.5 Phosphorus 3.3 Magnesium 1.9 Total Bilirubin 0.6 AST 34 ALT 35 Alkaline Phosphatase 58 Total Protein 7.2 Albumin 4.3 Globulin 2.9 Albumin/Globulin Ratio 1.5 Procalcitonin 0.19 Urine Opiates Screen Urine Methadone Screen Ur Barbiturates Screen Ur Phencyclidine Scrn Ur Amphetamines Screen U Benzodiazepines Scrn U Oth Cocaine Metabols U Cannabinoids Screen 02/10/17 10:18 WBC RBC Hgb Hct MCV MCH MCHC RDW Plt Count MPV Gran % Lymph % (Auto) Worth % (Auto) Eos % (Auto) Baso % (Auto) Gran # Lymph # Worth # Eos # Baso # Sodium Potassium Chloride Carbon Dioxide Anion Gap BUN Creatinine Est GFR ( Amer) Est GFR (Non-Af Amer) Random Glucose Calcium Phosphorus Magnesium Total Bilirubin AST ALT Alkaline Phosphatase Total Protein Albumin Globulin Albumin/Globulin Ratio Procalcitonin Urine Opiates Screen Positive H Urine Methadone Screen Negative Ur Barbiturates Screen Negative Ur Phencyclidine Scrn Negative Ur Amphetamines Screen Negative U Benzodiazepines Scrn Negative U Oth Cocaine Metabols Negative U Cannabinoids Screen Negative Assessment & Plan - Assessment and Plan (Free Text) Assessment: This is a 26yF pw abdominal and suprapubic pain. 1. Abdominal Pain 2. Hx of Gastritis 3. Hx of Gastric Ulcer possible H.pylori infection 4. UTI 5. Hematuria 6. Constipation 7. Cholelithiasis Plan: -Continue supportive acre with IVF hydration, pain control and anti-emetics -Advance diet as tolerated to low fat, small frequent meals -Recommend discontinuing Flagyl with no signs of GI infection -Continue Ceftriaxone for possible UTI -Gross hematuria recommend urology consult -Recommend PPI 40mg po daily and not BID -Bowel regimen for constipation, start miralax daily and colace -Order studies for possible H.pylori infection -Cholelithiasis-per surgical recommendations -Will continue to follow pt closely <Juan Coffey MD - Last Filed: 02/10/17 12:36> Meds - Medications Medications: Current Medications Acetaminophen (Tylenol 325mg Tab) 650 mg PO Q6 PRN PRN Reason: Pain, Mild (1-3) Last Admin: 02/10/17 09:48 Dose: 650 mg Acetaminophen (Tylenol 325mg Tab) 650 mg PO Q6 PRN PRN Reason: Fever >100.4 F Al Hydrox/Mg Hydrox/Simethicone (Maalox Plus 30 Ml) 30 ml PO Q6 PRN PRN Reason: Indigestion / Heartburn Last Admin: 02/10/17 09:47 Dose: 30 ml Docusate Sodium (Colace) 100 mg PO DAILY [facility] Last Admin: 02/10/17 09:55 Dose: 100 mg Ceftriaxone Sodium (Rocephin 1 Gram Ivpb) 1 gm in 100 mls @ 100 mls/hr IVPB DAILY [facility] PRN Reason: Protocol Last Admin: 02/10/17 09:50 Dose: 100 mls/hr Potassium Chloride 40 meq/ (Sodium Chloride) 1,020 mls @ 100 mls/hr IV .[id number] [facility] Last Admin: 02/10/17 12:08 Dose: 100 mls/hr Lorazepam (Ativan) 0.5 mg PO TID PRN; Protocol PRN Reason: Nausea/Vomiting Ondansetron HCl (Zofran Inj) 4 mg IVP Q4H PRN PRN Reason: Nausea/Vomiting Last Admin: 02/10/17 08:42 Dose: 4 mg Pantoprazole Sodium (Protonix Inj) 40 mg IVP BID [facility] Last Admin: 02/10/17 09:48 Dose: 40 mg Polyethylene Glycol (Miralax) 17 gm PO DAILY [facility] Last Admin: 02/10/17 09:51 Dose: 17 gm Sucralfate (Carafate Oral Susp) 1 gm PO 0600,1600 [facility] Last Admin: 02/10/17 11:58 Dose: 1 gm Results - Vital Signs Recent Vital Signs: Last Vital Signs Temp 98.2 F 02/10/17 06:00 Pulse 61 02/10/17 06:00 Resp 18 02/10/17 06:00 BP 97/54 L 02/10/17 06:00 Pulse Ox 99 02/10/17 06:00 - Labs Result Diagrams: 02/10/17 06:00 02/10/17 06:00 Labs: Laboratory Results - last 24 hr 02/09/17 02/10/17 02/10/17 07:00 06:00 06:00 WBC 7.9 D RBC 4.12 Hgb 12.4 Hct 35.9 L MCV 87.1 MCH 30.1 MCHC 34.5 RDW 13.4 Plt Count 175 MPV 9.0 Gran % 68.3 H Lymph % (Auto) 25.5 Worth % (Auto) 5.9 Eos % (Auto) 0.0 L Baso % (Auto) 0.3 Gran # 5.37 Lymph # 2.0 Worth # 0.5 Eos # 0.0 Baso # 0.02 Sodium 140 Potassium 3.0 L Chloride 103 Carbon Dioxide 19 L Anion Gap 21 H BUN 6 L Creatinine 0.7 Est GFR ( Amer) > 60 Est GFR (Non-Af Amer) > 60 Random Glucose 60 L Calcium 8.5 Phosphorus 3.3 Magnesium 1.9 Total Bilirubin 0.6 AST 34 ALT 35 Alkaline Phosphatase 58 Total Protein 7.2 Albumin 4.3 Globulin 2.9 Albumin/Globulin Ratio 1.5 Procalcitonin 0.19 Urine Opiates Screen Urine Methadone Screen Ur Barbiturates Screen Ur Phencyclidine Scrn Ur Amphetamines Screen U Benzodiazepines Scrn U Oth Cocaine Metabols U Cannabinoids Screen 02/10/17 10:18 WBC RBC Hgb Hct MCV MCH MCHC RDW Plt Count MPV Gran % Lymph % (Auto) Worth % (Auto) Eos % (Auto) Baso % (Auto) Gran # Lymph # Worth # Eos # Baso # Sodium Potassium Chloride Carbon Dioxide Anion Gap BUN Creatinine Est GFR ( Amer) Est GFR (Non-Af Amer) Random Glucose Calcium Phosphorus Magnesium Total Bilirubin AST ALT Alkaline Phosphatase Total Protein Albumin Globulin Albumin/Globulin Ratio Procalcitonin Urine Opiates Screen Positive H Urine Methadone Screen Negative Ur Barbiturates Screen Negative Ur Phencyclidine Scrn Negative Ur Amphetamines Screen Negative U Benzodiazepines Scrn Negative U Oth Cocaine Metabols Negative U Cannabinoids Screen Negative Attending/Attestation - Attestation I have personally seen and examined this patient.: Yes I have fully participated in the care of the patient.: Yes I have reviewed all pertinent clinical information: Yes Notes (Text): 02/10/17 12:31 Patient seen with GI fellow on rounds this am. This is a 26 year old F presented with abdominal and suprapubic pain. GI consulted for abdominal pain. As per patient history of [place] with [place] [facility] [place] outpatient follow up. Also complains of constipation and hematuria today. Recommend strict bowel regimen and urology consult. Abdominal sonogram with sludge and no biliary duct dilatation. Will continue PPI daily. Antibiotics as per medical team for UTI. Send stool for H pylori antigen. Will
[2017-02-10] MEDS: Sucralfate 1 gm/10 ml Oral Susp UD PO SCH ×2 (11:58→17:35)
--- NOTE | 2017-02-10 13:08 | CP.PCM.PN ---
<Yuan Weaver - Last Filed: 02/10/17 13:04> Subjective - Date & Time of Evaluation Date of Evaluation: 02/10/17 Time of Evaluation: 13:05 - Subjective Subjective: Patient has been seen and examined. Patient still complains of epigastric/ suprapubic tendernes, and constipation (4 days no bowel movement). Denies any fevers, chills, dysuria, inc. urinary frequency, SOB, or chestpain. Objective - Vital Signs/Intake and Output Vital Signs (last 24 hours): Temp Pulse Resp BP Pulse Ox 98.2 F 61 18 97/54 L 99 02/10/17 06:00 02/10/17 06:00 02/10/17 06:00 02/10/17 06:00 02/10/17 06:00 Intake and Output: 02/10/17 02/10/17 06:59 18:59 Intake Total 1090 Output Total 0 Balance 1090 - Medications Medications: Current Medications Acetaminophen (Tylenol 325mg Tab) 650 mg PO Q6 PRN PRN Reason: Pain, Mild (1-3) Last Admin: 02/10/17 09:48 Dose: 650 mg Acetaminophen (Tylenol 325mg Tab) 650 mg PO Q6 PRN PRN Reason: Fever >100.4 F Al Hydrox/Mg Hydrox/Simethicone (Maalox Plus 30 Ml) 30 ml PO Q6 PRN PRN Reason: Indigestion / Heartburn Last Admin: 02/10/17 09:47 Dose: 30 ml Docusate Sodium (Colace) 100 mg PO DAILY [facility] Last Admin: 02/10/17 09:55 Dose: 100 mg Ceftriaxone Sodium (Rocephin 1 Gram Ivpb) 1 gm in 100 mls @ 100 mls/hr IVPB DAILY [facility] PRN Reason: Protocol Last Admin: 02/10/17 09:50 Dose: 100 mls/hr Potassium Chloride 40 meq/ (Sodium Chloride) 1,020 mls @ 100 mls/hr IV .[id number] [facility] Last Admin: 02/10/17 12:08 Dose: 100 mls/hr Lorazepam (Ativan) 0.5 mg PO TID PRN; Protocol PRN Reason: Nausea/Vomiting Ondansetron HCl (Zofran Inj) 4 mg IVP Q4H PRN PRN Reason: Nausea/Vomiting Last Admin: 02/10/17 08:42 Dose: 4 mg Pantoprazole Sodium (Protonix Inj) 40 mg IVP BID [facility] Last Admin: 02/10/17 09:48 Dose: 40 mg Polyethylene Glycol (Miralax) 17 gm PO DAILY [facility] Last Admin: 02/10/17 09:51 Dose: 17 gm Sucralfate (Carafate Oral Susp) 1 gm PO 0600,1600 [facility] Last Admin: 02/10/17 11:58 Dose: 1 gm - Labs Labs: 02/10/17 06:00 02/10/17 06:00 - Constitutional Appears: Non-toxic - Head Exam Head Exam: ATRAUMATIC, NORMOCEPHALIC - Eye Exam Eye Exam: Normal appearance - ENT Exam ENT Exam: Mucous Membranes Moist - Respiratory Exam Respiratory Exam: Clear to Ausculation Bilateral, NORMAL BREATHING PATTERN. absent: Rales, Rhonchi, Wheezes - Cardiovascular Exam Cardiovascular Exam: RRR, +S1, +S2. absent: Tachycardia, JVD - GI/Abdominal Exam GI & Abdominal Exam: Soft, Tenderness Additional comments: Suprapubic/Epigastric tenderness - Back Exam Back Exam: absent: CVA tenderness (L), CVA tenderness (R) - Neurological Exam Neurological Exam: Alert, Awake, Oriented x3 - Psychiatric Exam Psychiatric exam: Anxious Assessment and Plan - Assessment and Plan (Free Text) Assessment: 26 F with PMHx of chronic gastritis and gastric ulcer admitted for observation for intractable abdominal pain/ nausea and vomiting. Abd US showed Gall bladder sludge. CT Abd/Pelvis showed: non-specific periportal edema, nonspecific small pelvic ascites, Mild colitis vs underdistention; favoring underdistention. Preliminary Urine cultures showed Gram negative rods. Plan: 1. Intractable N/V/Abdominal pain - IVF hydration. - Advanced diet as tolerated. (Currently on clear liquid). Will advanced to regular soft for lunch --We will D/C flagyl, and cont. Rocephin for UTI. -Cont. Protonix -Sucralfate, -GI Consulted Recs appreciated -Surgery Consulted Recs appreciated (Signed off). 2. UTI (Preliminary read Gram negative) Cont. Rocephin Continue to monitor 3. Hypokalemia -Repleted Continue to monitor 4. Constipation -Miralax and Colace daily per GI GI proph Protonix Dispo: Will likely discharge tomorrow if patient can tolerate diet. Will likely discharge with PO antibiotics for UTI. <Kathryn Torres - Last Filed: 02/10/17 14:52> Objective - Vital Signs/Intake and Output Vital Signs (last 24 hours): Temp Pulse Resp BP Pulse Ox 98.2 F 61 18 97/54 L 99 02/10/17 14:01 02/10/17 14:01 02/10/17 14:01 02/10/17 14:01 02/10/17 14:01 Intake and Output: 02/10/17 02/10/17 06:59 18:59 Intake Total 1090 Output Total 0 Balance 1090 - Medications Medications: Current Medications Acetaminophen (Tylenol 325mg Tab) 650 mg PO Q6 PRN PRN Reason: Pain, Mild (1-3) Last Admin: 02/10/17 09:48 Dose: 650 mg Acetaminophen (Tylenol 325mg Tab) 650 mg PO Q6 PRN PRN Reason: Fever >100.4 F Al Hydrox/Mg Hydrox/Simethicone (Maalox Plus 30 Ml) 30 ml PO Q6 PRN PRN Reason: Indigestion / Heartburn Last Admin: 02/10/17 09:47 Dose: 30 ml Docusate Sodium (Colace) 100 mg PO DAILY [facility] Last Admin: 02/10/17 09:55 Dose: 100 mg Ceftriaxone Sodium (Rocephin 1 Gram Ivpb) 1 gm in 100 mls @ 100 mls/hr IVPB DAILY [facility] PRN Reason: Protocol Last Admin: 02/10/17 09:50 Dose: 100 mls/hr Potassium Chloride 40 meq/ (Sodium Chloride) 1,020 mls @ 100 mls/hr IV .[id number] [facility] Last Admin: 02/10/17 12:08 Dose: 100 mls/hr Lorazepam (Ativan) 0.5 mg PO TID PRN; Protocol PRN Reason: Nausea/Vomiting Ondansetron HCl (Zofran Inj) 4 mg IVP Q4H PRN PRN Reason: Nausea/Vomiting Last Admin: 02/10/17 08:42 Dose: 4 mg Pantoprazole Sodium (Protonix Inj) 40 mg IVP BID [facility] Last Admin: 02/10/17 09:48 Dose: 40 mg Polyethylene Glycol (Miralax) 17 gm PO DAILY [facility] Last Admin: 02/10/17 09:51 Dose: 17 gm Sucralfate (Carafate Oral Susp) 1 gm PO 0600,1600 [facility] Last Admin: 02/10/17 11:58 Dose: 1 gm - Labs Labs: 02/10/17 06:00 02/10/17 06:00 Attending/Attestation - Attestation I have personally seen and examined this patient.: Yes I have fully participated in the care of the patient.: Yes I have reviewed all pertinent clinical information, including history, physical exam and plan: Yes Notes (Text): 02/10/17 14:50 attending note; Patient seen and examined with resident. Patient is still complaining of epigastric discomfort. Nausea persists. Tolerating only liquid diet. Patient is a 26-year-old female with a history of gastritis/gastric ulcer is admitted with intractable nausea and vomiting. Continue IV fluids, IV Protonix. Continue Carafate and Maalox. GI evaluation appreciated. Surgery evaluation appreciated; CAT scan is negative. Ultrasound showed gallbladder sludge. Opiate discontinued. Advance diet as as tolerated. Possible discharge home tomorrow if clinically stable. Case discussed with GI fellow/surgery in detail. Upon discharge the patient will follow-up with PMD of choice. 02/10/17 14:52
[2017-02-10 17:26] LABS: BLOOD UREA NITROGEN 7 mg/dL (7-21); CALCIUM 9.1 mg/dL (8.4-10.5); CARBON DIOXIDE 19 mmol/L (21-33); CHLORIDE 105 mmol/L (98-107); GFR AFRICAN-AMERICAN > 60; GLUCOSE,RANDOM 69 mg/dL (70-110); POTASSIUM 3.6 mmol/L (3.6-5.0); SODIUM 140 mmol/L (132-148)
--- NOTE | 2017-02-10 18:33 | CP.PCM.DIS ---
<Yuan Weaver - Last Filed: 02/10/17 18:36> Provider - Provider Date of Admission: 02/09/17 02:51 Attending physician: Kathryn Torres MD Primary care physician: Lenin Profile Required Consults: GI- Dr. Berry Surgery - Dr. Aguilar Time Spent in preparation of Discharge (in minutes): 40 Diagnosis - Discharge Diagnosis (1) Gastritis Status: Acute (2) UTI (urinary tract infection) Status: Acute Hospital Course - Lab Results Lab Results: Most Recent Lab Values WBC 7.9 10^3/ul (4.5-11.0) D 02/10/17 06:00 RBC 4.12 10^6/uL (3.5-6.1) 02/10/17 06:00 Hgb 12.4 g/dL (12.0-16.0) 02/10/17 06:00 Hct 35.9 % (36.0-48.0) L 02/10/17 06:00 MCV 87.1 fl (80.0-105.0) 02/10/17 06:00 MCH 30.1 pg (25.0-35.0) 02/10/17 06:00 MCHC 34.5 g/dl (31.0-37.0) 02/10/17 06:00 RDW 13.4 % (11.5-14.5) 02/10/17 06:00 Plt Count 175 10^3/uL (120.0-450.0) 02/10/17 06:00 MPV 9.0 fl (7.0-11.0) 02/10/17 06:00 Gran % 68.3 % (50.0-68.0) H 02/10/17 06:00 Lymph % (Auto) 25.5 % (22.0-35.0) 02/10/17 06:00 [place] % (Auto) 5.9 % (1.0-6.0) 02/10/17 06:00 Eos % (Auto) 0.0 % (1.5-5.0) L 02/10/17 06:00 Baso % (Auto) 0.3 % (0.0-3.0) 02/10/17 06:00 Gran # 5.37 (1.4-6.5) 02/10/17 06:00 Lymph # 2.0 (1.2-3.4) 02/10/17 06:00 [place] # 0.5 (0.1-0.6) 02/10/17 06:00 Eos # 0.0 (0.0-0.7) 02/10/17 06:00 Baso # 0.02 K/mm3 (0.0-2.0) 02/10/17 06:00 Sodium 140 mmol/L (132-148) 02/10/17 16:50 Potassium 3.6 mmol/L (3.6-5.0) 02/10/17 16:50 Chloride 105 mmol/L (98-107) 02/10/17 16:50 Carbon Dioxide 19 mmol/L (21-33) L 02/10/17 16:50 Anion Gap 20 (10-20) 02/10/17 16:50 BUN 7 mg/dL (7-21) 02/10/17 16:50 Creatinine 0.8 mg/dL (0.5-1.4) 02/10/17 16:50 Est GFR ( Amer) > 60 02/10/17 16:50 Est GFR (Non-Af Amer) > 60 02/10/17 16:50 Random Glucose 69 mg/dL (70-110) L 02/10/17 16:50 Lactic Acid 0.6 mmol/L (0.7-2.1) L 02/09/17 07:00 Calcium 9.1 mg/dL (8.4-10.5) 02/10/17 16:50 Phosphorus 3.3 mg/dL (2.5-4.5) 02/10/17 06:00 Magnesium 1.9 mg/dL (1.7-2.2) 02/10/17 06:00 Total Bilirubin 0.6 mg/dL (0.2-1.3) 02/10/17 06:00 AST 34 U/L (14-36) 02/10/17 06:00 ALT 35 U/L (7-56) 02/10/17 06:00 Alkaline Phosphatase 58 U/L (38-126) 02/10/17 06:00 Total Protein 7.2 g/dL (5.8-8.3) 02/10/17 06:00 Albumin 4.3 g/dL (3.0-4.8) 02/10/17 06:00 Globulin 2.9 gm/dL 02/10/17 06:00 Albumin/Globulin Ratio 1.5 (1.1-1.8) 02/10/17 06:00 Lipase 46 U/L (23-300) 02/09/17 00:20 Procalcitonin 0.19 NG/ML (0.19-0.49) 02/09/17 07:00 Urine Color Yellow (YELLOW) 02/09/17 01:00 Urine Appearance Cloudy (CLEAR) 02/09/17 01:00 Urine pH 6.0 (4.7-8.0) 02/09/17 01:00 Ur Specific [place] >= 1.030 (1.005-1.035) 02/09/17 01:00 Urine Protein 30 mg/dL (<30 mg/dL) H 02/09/17 01:00 Urine Glucose (UA) Negative mg/dL (NEGATIVE) 02/09/17 01:00 Urine Ketones >=80 mg/dL (NEGATIVE) 02/09/17 01:00 Urine Blood Small (NEGATIVE) H 02/09/17 01:00 Urine Nitrate Negative (NEGATIVE) 02/09/17 01:00 Urine Bilirubin Negative (NEGATIVE) 02/09/17 01:00 Urine Urobilinogen 0.2 E.U./dL (<1 E.U./dL) 02/09/17 01:00 Ur Leukocyte Esterase Large Claudia/uL (NEGATIVE) H 02/09/17 01:00 Urine RBC 2 - 5 /hpf (0-2) 02/09/17 01:00 Urine WBC 25 - 30 /hpf (0-6) 02/09/17 01:00 Ur Epithelial Cells 3 - 4 /hpf (0-5) 02/09/17 01:00 Urine Bacteria Mod (NEG) 02/09/17 01:00 Urine Opiates Screen Positive (NEGATIVE) H 02/10/17 10:18 Urine Methadone Screen Negative (NEGATIVE) 02/10/17 10:18 Ur Barbiturates Screen Negative (NEGATIVE) 02/10/17 10:18 Ur Phencyclidine Scrn Negative (NEGATIVE) 02/10/17 10:18 Ur Amphetamines Screen Negative (NEGATIVE) 02/10/17 10:18 U Benzodiazepines Scrn Negative (NEGATIVE) 02/10/17 10:18 U Oth Cocaine Metabols Negative (NEGATIVE) 02/10/17 10:18 U Cannabinoids Screen Negative (NEGATIVE) 02/10/17 10:18 Alcohol, Quantitative < 10 mg/dL (0-10) 02/09/17 00:20 - Hospital Course Hospital Course: 26 F with a PMHx of chronic gastritis and gastric ulcer presenting to the [facility] ED with complaints of intractable abdominal pain, nausea and vomiting x 3 days. Patient was treated with IV fluid hydration, Zofran for nausea, analgesics for pain control. GI and Surgery were consulted on the case. Hospital course complicated with UTI. She was put on antibiotics for her UTI. Analgesics were eventually tapered and then stopped. Patient did demonstrate some med seeking behavior. Fluid was advanced from NPO to soft regular diet which she tolerated. She will be sent home with Ciprofloxacin for UTI, Zofran for Nausea, Protonix , and Carafate. Patient should follow up with PMD and GI on outpatient basis within 1-2 weeks. Patient is agreeable to plan and medications. Imaging impressions below. Gallbladder US: Gallbladder Sludge Abd/Pelvis CT: Non-specific Periportal edema, Non-Specific small pelvic ascites , mild colitis vs underdistention. Favor underdistension. Patient seen, discussed, and reviewed with Attending Yuan Weaver PGY-1 Discharge Exam - Head Exam Head Exam: ATRAUMATIC, NORMOCEPHALIC - Additional Findings Additional findings: Refer to progress note for exam Discharge Plan - Discharge Medications Prescriptions: Ciprofloxacin HCl [Cipro] 500 mg PO BID #10 tablet Ondansetron HCl [Zofran] 4 mg PO Q12 #8 ml Pantoprazole Sodium [Protonix] 40 mg PO BID #60 ect Sucralfate [Carafate Oral Susp] 1 gm PO 0600,1600 #20 - Follow Up Plan Condition: STABLE Disposition: HOME/ ROUTINE Instructions: How to Stop Smoking (DC), Urinary Tract Infection in Women (DC), Abdominal Pain (ED) Additional Instructions: Discharge Instructions 1. Follow up with PMD of choice. 2. Follow up with GI for outpatient EGD. 3. Avoid opiates. 4. Continue protonix. Discharge Diagnosis Intractable N/V/Abdominal pain UTI (Preliminary read Gram negative) Hypokalemia Constipation Referrals: Lenin Cowart Req, [Primary Care Provider] - <Kathryn Torres - Last Filed: 02/11/17 08:30> Provider - Provider Date of Admission: 02/09/17 02:51 Attending physician: Kathryn Torres MD Primary care physician: Lenin Cowart Required Hospital Course - Lab Results Lab Results: Most Recent Lab Values WBC 7.9 10^3/ul (4.5-11.0) D 02/10/17 06:00 RBC 4.12 10^6/uL (3.5-6.1) 02/10/17 06:00 Hgb 12.4 g/dL (12.0-16.0) 02/10/17 06:00 Hct 35.9 % (36.0-48.0) L 02/10/17 06:00 MCV 87.1 fl (80.0-105.0) 02/10/17 06:00 MCH 30.1 pg (25.0-35.0) 02/10/17 06:00 MCHC 34.5 g/dl (31.0-37.0) 02/10/17 06:00 RDW 13.4 % (11.5-14.5) 02/10/17 06:00 Plt Count 175 10^3/uL (120.0-450.0) 02/10/17 06:00 MPV 9.0 fl (7.0-11.0) 02/10/17 06:00 Gran % 68.3 % (50.0-68.0) H 02/10/17 06:00 Lymph % (Auto) 25.5 % (22.0-35.0) 02/10/17 06:00 [place] % (Auto) 5.9 % (1.0-6.0) 02/10/17 06:00 Eos % (Auto) 0.0 % (1.5-5.0) L 02/10/17 06:00 Baso % (Auto) 0.3 % (0.0-3.0) 02/10/17 06:00 Gran # 5.37 (1.4-6.5) 02/10/17 06:00 Lymph # 2.0 (1.2-3.4) 02/10/17 06:00 [place] # 0.5 (0.1-0.6) 02/10/17 06:00 Eos # 0.0 (0.0-0.7) 02/10/17 06:00 Baso # 0.02 K/mm3 (0.0-2.0) 02/10/17 06:00 Sodium 140 mmol/L (132-148) 02/10/17 16:50 Potassium 3.6 mmol/L (3.6-5.0) 02/10/17 16:50 Chloride 105 mmol/L (98-107) 02/10/17 16:50 Carbon Dioxide 19 mmol/L (21-33) L 02/10/17 16:50 Anion Gap 20 (10-20) 02/10/17 16:50 BUN 7 mg/dL (7-21) 02/10/17 16:50 Creatinine 0.8 mg/dL (0.5-1.4) 02/10/17 16:50 Est GFR ( Amer) > 60 02/10/17 16:50 Est GFR (Non-Af Amer) > 60 02/10/17 16:50 Random Glucose 69 mg/dL (70-110) L 02/10/17 16:50 Lactic Acid 0.6 mmol/L (0.7-2.1) L 02/09/17 07:00 Calcium 9.1 mg/dL (8.4-10.5) 02/10/17 16:50 Phosphorus 3.3 mg/dL (2.5-4.5) 02/10/17 06:00 Magnesium 1.9 mg/dL (1.7-2.2) 02/10/17 06:00 Total Bilirubin 0.6 mg/dL (0.2-1.3) 02/10/17 06:00 AST 34 U/L (14-36) 02/10/17 06:00 ALT 35 U/L (7-56) 02/10/17 06:00 Alkaline Phosphatase 58 U/L (38-126) 02/10/17 06:00 Total Protein 7.2 g/dL (5.8-8.3) 02/10/17 06:00 Albumin 4.3 g/dL (3.0-4.8) 02/10/17 06:00 Globulin 2.9 gm/dL 02/10/17 06:00 Albumin/Globulin Ratio 1.5 (1.1-1.8) 02/10/17 06:00 Lipase 46 U/L (23-300) 02/09/17 00:20 Procalcitonin 0.19 NG/ML (0.19-0.49) 02/09/17 07:00 Urine Color Yellow (YELLOW) 02/09/17 01:00 Urine Appearance Cloudy (CLEAR) 02/09/17 01:00 Urine pH 6.0 (4.7-8.0) 02/09/17 01:00 Ur Specific [place] >= 1.030 (1.005-1.035) 02/09/17 01:00 Urine Protein 30 mg/dL (<30 mg/dL) H 02/09/17 01:00 Urine Glucose (UA) Negative mg/dL (NEGATIVE) 02/09/17 01:00 Urine Ketones >=80 mg/dL (NEGATIVE) 02/09/17 01:00 Urine Blood Small (NEGATIVE) H 02/09/17 01:00 Urine Nitrate Negative (NEGATIVE) 02/09/17 01:00 Urine Bilirubin Negative (NEGATIVE) 02/09/17 01:00 Urine Urobilinogen 0.2 E.U./dL (<1 E.U./dL) 02/09/17 01:00 Ur Leukocyte Esterase Large Claudia/uL (NEGATIVE) H 02/09/17 01:00 Urine RBC 2 - 5 /hpf (0-2) 02/09/17 01:00 Urine WBC 25 - 30 /hpf (0-6) 02/09/17 01:00 Ur Epithelial Cells 3 - 4 /hpf (0-5) 02/09/17 01:00 Urine Bacteria Mod (NEG) 02/09/17 01:00 Urine Opiates Screen Positive (NEGATIVE) H 02/10/17 10:18 Urine Methadone Screen Negative (NEGATIVE) 02/10/17 10:18 Ur Barbiturates Screen Negative (NEGATIVE) 02/10/17 10:18 Ur Phencyclidine Scrn Negative (NEGATIVE) 02/10/17 10:18 Ur Amphetamines Screen Negative (NEGATIVE) 02/10/17 10:18 U Benzodiazepines Scrn Negative (NEGATIVE) 02/10/17 10:18 U Oth Cocaine Metabols Negative (NEGATIVE) 02/10/17 10:18 U Cannabinoids Screen Negative (NEGATIVE) 02/10/17 10:18 Alcohol, Quantitative < 10 mg/dL (0-10) 02/09/17 00:20 Attending/Attestation - Attestation I have personally seen and examined this patient.: Yes I have fully participated in the care of the patient.: Yes I have reviewed all pertinent clinical information, including history, physical exam and plan: Yes Notes (Text): 02/11/17 08:29 attending note; Patient seen and examined with resident. Patient is still complaining of epigastric discomfort. Nausea or vomiting resolved. Tolerating regular diet. Patient is a 26-year-old female with a history of gastritis/gastric ulcer is admitted with intractable nausea and vomiting. Treated with IV fluids, IV Protonix. Continue Carafate and Maalox. GI evaluation appreciated. Surgery evaluation appreciated; CAT scan is negative. Ultrasound showed gallbladder sludge. Upon discharge the patient will follow-up with PMD of choice. Diagnosis; Gastritis Nausea or vomiting UTI 02/11/17 08:30
== END 2017-02-10 19:08 | disposition home or self-care (01) ==
LOC: ED 00:15 → ERH 02:51 → 3RSO 04:03
PROVIDERS: ADMIT Internal Medicine; ATTEND Internal Medicine
DX: N39.0 Urinary tract infection, site not specified (principal); K59.00 Constipation, unspecified; K80.20 Calculus of gallbladder without cholecystitis without obstruction; R31.9 Hematuria, unspecified; E87.6 Hypokalemia; R18.8 Other ascites; K29.50 Unspecified chronic gastritis without bleeding; K25.9 Gastric ulcer, unspecified as acute or chronic, without hemorrhage or perforation; Z87.891 Personal history of nicotine dependence
CPT/HCPCS: 36415; 74177; 76705; 80053; 81001; 83605; 83690; 83735; 84100; 84145; 85025; 87086; 87181; 96361; 96365; 96366; 96372; 96375; 96376; 99285; C9113; G0378; G0480; J0696; J1170; J1200; J1644; J2270; J2405; J2765; J3480; J7040; Q9967

== ENCOUNTER 2018-08-24 15:08 | Emergency (ER) | payer OTHER ==
[2018-08-24 15:09] VITALS: BMI 27.3
[2018-08-24 15:48] VITALS: RESP 18; TEMP 98.3; O2SAT 98
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
[2018-08-24] MEDS ORDERED: Sodium Chloride 0.9% 1,000 ML IV STA (16:10)
[2018-08-24 16:41] LABS: BASO # 0.03 K/mm3 (0.0-2.0); BASO % 0.2 % (0.0-3.0); EOS % 0.1 % (1.5-5.0); HEMOGLOBIN 13.8 g/dL (12.0-16.0); LYMPH # 3.1 (1.2-3.4); LYMPH % 20.5 % (22.0-35.0); MEAN CORPUSCULAR HEMOGLOBIN 31.3 pg (25.0-35.0); MEAN CORPUSCULAR HGB CONC 33.7 g/dl (31.0-37.0); MEAN PLATELET VOLUME 9.7 fl (7.0-11.0); MONO # 1.1 (0.1-0.6); MONO % 7.4 % (1.0-6.0); RBC 4.41 10^6/uL (3.5-6.1); RED CELL DISTRIBUTION WIDTH 14.2 % (11.5-14.5)
[2018-08-24 16:51] LABS: ALB/GLOB RATIO 1.1 (1.1-1.8); ALT/SGPT 13 U/L (7-56); AST/SGOT 25 U/L (14-36); BLOOD UREA NITROGEN 6 mg/dL (7-21); GFR NON-AFRICAN AMERICAN > 60; LIPASE 143 U/L (23-300)
[2018-08-24] MEDS ORDERED: Potassium Chloride 20 mEq ER Tab PO STA (16:57)
[2018-08-24] MEDS ORDERED: Iohexol 350 MG/100 ML VIAL ONE (17:06)
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
[2018-08-24 18:41] VITALS: BP 116/65; PULSE 75
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
--- NOTE | 2018-08-25 09:51 | CARD ---
APPROVED REPORT Date of service: 08/24/2018 EKG Measurement Heart [id number] <Conclusion> Sinus rhythm with 1st degree AV block Incomplete right bundle branch block Borderline ECG
--- NOTE | 2018-08-25 11:19 | CT ---
Date of service: 08/24/2018 PROCEDURE: CT Chest, Abdomen and Pelvis with intravenous contrast HISTORY: trauma COMPARISON: None available. TECHNIQUE: IV dose administered: Radiation dose: Total exam DLP = 1093.83 mGy-cm. This CT exam was performed using one or more of the following dose reduction techniques: Automated exposure control, adjustment of the mA and/or kV according to patient size, and/or use of iterative reconstruction technique. FINDINGS: CT CHEST WITH CONTRAST: LUNGS: Clear. No nodule, mass or consolidation. MEDIASTINUM: Unremarkable. Normal caliber aorta and pulmonary arterial trunk. No aortic dissection. Normal size heart. LYMPH NODES: Unremarkable. PLEURA: Unremarkable. No pneumothorax. No pleural fluid. BONES: Unremarkable. OTHER FINDINGS: None. CT ABDOMEN AND PELVIS: LIVER: Unremarkable. No gross lesion or ductal dilatation. GALLBLADDER AND BILE DUCTS: Unremarkable. PANCREAS: Unremarkable. No gross lesion or ductal dilatation. SPLEEN: Unremarkable. ADRENALS: Unremarkable. No mass. KIDNEYS AND URETERS: Unremarkable. No hydronephrosis. No solid mass. VASCULATURE: No aortic atherosclerotic calcification or mural plaque present. Unremarkable. No aortic aneurysm. BOWEL: Unremarkable. No obstruction. No gross mural thickening. APPENDIX: Normal appendix. PERITONEUM: Small amount of free fluid in the pelvis LYMPH NODES: Unremarkable. No enlarged lymph nodes. BLADDER: Unremarkable. REPRODUCTIVE: Unremarkable. BONES: No acute fracture. OTHER FINDINGS: The report concurs with the preliminary [facility] report IMPRESSION: No acute intrathoracic or intra-abdominal abnormalities. Minimal physiologic fluid in the pelvis
== END 2018-08-24 18:50 | disposition home or self-care (01) ==
LOC: ED 15:08
DX: Z04.1 Encounter for examination and observation following transport accident (principal); V49.59XA Passenger injured in collision with other motor vehicles in traffic accident, initial encounter; W22.10XA Striking against or struck by unspecified automobile airbag, initial encounter; Y92.410 Unspecified street and highway as the place of occurrence of the external cause
CPT/HCPCS: 70450; 71260; 72125; 73030; 74177; 80053; 81025; 83690; 85025; 93005; 96374; 99285; J1885; J7030; Q9967